=== PATIENT | male | born 1950 | race Caucasian/White ===

== ENCOUNTER 2019-08-02 05:03 | Inpatient (IN) | payer MEDICARE ==
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
[2019-08-02] MEDS ORDERED: TENORMIN100 MG PO (05:06)
[2019-08-02] MEDS ORDERED: NAPROSYN500 MG PO (05:06)
[2019-08-02] MEDS ORDERED: PREDNISONE5 MG PO (05:06)
[2019-08-02] MEDS ORDERED: VITAMIN D31000 UNI2 PO (05:07)
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
[2019-08-02 07:32] VITALS: BP 139/88; BMI 24.3
--- NOTE | 2019-08-02 08:52 | NUR ---
On the patient's skin assessment it is noted that he has some blister type areas on his back that are scabbing over. The patient says he has had shingles before but he does not think he has them now, he says other Dr.'s are unsure what it is . He also has onychomycosis to all of his digits on bilateral feet. He has had his right knee replaced. He is limping and walking slowly, but he refuses a cane or a walker or a w/c he says he tries to stay independent.
[2019-08-02 09:03] VITALS: BP 139/88
[2019-08-02 10:03] LABS: CHOL - HDL RATIO 3.4 ratio (2.3-4.9); THYROID STIMULATING HORMONE 3.46 uIU/mL (0.36-3.74)
--- NOTE | 2019-08-02 10:49 | NUR ---
The patient is discussing being [age] with other patients and he says he remembers being [age]. 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
[2019-08-02 11:30] VITALS: Wt 73.4 kg
[2019-08-02 20:10] VITALS: BP 110/66
--- NOTE | 2019-08-02 21:55 | NUR ---
B.) PT IS ALERT AND ORIENTED X4. HE IS PLEASANT WITH STAFF. HE IS ABLE TO MAKE HIS NEEDS KNOWN. HE IS ABLE TO AMBULATE WITHOUT ASSISTANCE. I.) PROVIDE PM MEDICATION R.) COMPLIANT WITH ALL MEDICATION. P.) CONTINUE PLAN OF CARE
[2019-08-03 08:00] VITALS: BP 117/74
--- NOTE | 2019-08-03 11:21 | NUR ---
RECEIVED PT. IN DINING ROOM FOR B'FAST, ALERT, ORIENTED, CALM, COOPERATIVE, DENIES SUICIDAL THOUGHTS. MEDS ADMIN PER ORDERS WITH COMPLETE MED COMPLIANCE NOTED. CONT POC DIRECTED.
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
--- NOTE | 2019-08-04 01:31 | NUR ---
B.) PT IS ALERT AND ORIENTED X4. HE IS PLEASANT WITH STAFF BUT IS WITHDRAWN FROM PEERS. HE IS ABLE TO AMBULATE UNASSISTED. I.) PROVIDED PM MEDICATIONS. R.) COMPLIANT WITH ALL MEDICATIONS. P.) WILL CONTINUE TO MONITOR.
[2019-08-04 07:35] LABS: ALBUMIN 2.4 g/dL (3.4-5.0); ANION GAP 11.2 mmol/L (8-16); BILIRUBIN - TOTAL 0.43 mg/dL (0.2-1.3); CALCIUM 8.3 mg/dL (8.5-10.1); CARBON DIOXIDE 27.6 mmol/L (21.0-32.0); CREATININE - SERUM 1.2 mg/dL (0.6-1.3); POTASSIUM - SERUM 4.8 mmol/L (3.5-5.1); PROTEIN - SERUM 7.1 g/dL (6.4-8.2)
[2019-08-04 07:48] LABS: BASOPHILS 0.8 % (0-2); HEMATOCRIT 39.1 % (42.0-54.0); HEMOGLOBIN 12.5 g/dL (13.5-17.5); IMMATURE GRANULOCYTES 0.2 % (0-5); LYMPHOCYTES 26.9 % (15-50); MCH 27.4 pg (26.0-34.0); MCV 85.6 fL (80.0-100.0); MEAN PLATELET VOLUME 10.4 fL (7.4-10.4); NEUTROPHILS 55.1 % (40-80); PLATELET COUNT 283 10x3/uL (130-400); RBC 4.57 10x6/uL (4.20-6.10); RDW 15.5 % (11.5-14.5); WBC 6.3 10x3/uL (4.8-10.8)
[2019-08-04 10:42] VITALS: BP 100/53
--- NOTE | 2019-08-04 17:44 | NUR ---
PATIENT DENIES SUICIDAL THOUGHTS THIS SHIFT, CALM, COOPERATIVE, ALERT, ORIENTED. COMPLIANT WITH MEDS. CONT POC DIRECTED.
--- NOTE | 2019-08-04 22:18 | NUR ---
RECEIVED IN PATIENT ROOM. GETTING READY FOR BED. CALM AND COOPERATIVE WITH CARE AND ASSESSMENT. DENIES THOUGHTS OF SELF HARM. REDIRECT AND REORIENT NEEDED. RESTING IN BED WITH EYES CLOSED AT THIS TIME. CONTINUE PLAN OF CARE.
[2019-08-05 00:03] VITALS: BP 110/54
[2019-08-05 08:10] LABS: RAPID PLASMA REAGIN Non Reactive (Non Reactive)
[2019-08-05 08:24] VITALS: BP 102/63
[2019-08-05 12:55] LABS: APPEARANCE CLEAR (CLEAR); BILIRUBIN NEGATIVE (NEGATIVE); COLOR YELLOW (YELLOW); GLUCOSE NEGATIVE (NEGATIVE); KETONE NEGATIVE (NEGATIVE); NITRITE NEGATIVE (NEGATIVE); PROTEIN NEGATIVE (NEGATIVE)
--- NOTE | 2019-08-05 13:28 | NUR ---
PT DENIES SI AT THIS TIME. PT IS CALM AND COOPERATIVE WITH ASSESSMENT. MED COMPLIANT. WILL CPOC.
--- NOTE | 2019-08-05 15:36 | PN ---
PATIENT:KEV PAYNE MEDICAL RECORD: [id number] LOCATION:[facility] [address] ADMISSION DATE: 08/02/19 PROGRESS NOTE DATE OF SERVICE: 08/04/2019 SUBJECTIVE: The patient's case was discussed with staff. He has no new complaint. OBJECTIVE: The patient has a depressed mood, but no thoughts of self-harm. He is tolerating his medicines well. ASSESSMENT: Major depression. PLAN: Current medicines have been reviewed. I am going to decrease his Ambien slightly because of some daytime sedation. He does have some very significant social needs. Hopefully, those can be addressed soon. TRANSINT:[id number] Voice Confirmation ID: [id number] DOCUMENT ID: [id number] IGNACIO TREVINO MD at 1536 CC: [id number] DICTATION DATE: 08/04/192049 DISPATCHER SERVICE: 08/04/192102 ADM IN [facility] [address] [place] [id number]
[2019-08-05 20:48] VITALS: BP 117/61
[2019-08-06 07:00] VITALS: BP 109/71
--- NOTE | 2019-08-06 10:00 | NUR ---
PATIENT IN GROUP AT THIS TIME. NO DISTRESS NOTED AT THIS TIME. RESP EVEN AND NONLABORED. PT IS ALERT AND ORIENTED TO PERSON, TIME AND PLACE. DENIES ANY SI AT THIS TIME. PT CAN MAKE NEEDS KNOWN. WILL CONT PLAN OF CARE.
--- NOTE | 2019-08-06 13:45 | PN ---
PATIENT:KEV PAYNE MEDICAL RECORD: [id number] LOCATION:[facility] [address] ADMISSION DATE: 08/02/19 PROGRESS NOTE DATE OF SERVICE: 08/05/2019 SUBJECTIVE: The patient's case was discussed with staff. He has no new complaint. OBJECTIVE: I think the lower dose of Ambien has helped this patient. He is much less impaired. He denies that he would seek to harm himself again. At this point, I think it is a matter of finding some sort of reasonable placement for him. I have spoken with our social work therapist regarding this and she is working on it as best she can. ASSESSMENT: Major depression. PLAN: Current medicines will be maintained. TRANSINT:[id number] Voice Confirmation ID: [id number] DOCUMENT ID: [id number] IGNACIO TREVINO MD at 1345 CC: [id number] DICTATION DATE: 08/05/191925 FASHION MERCHANDISER: 08/05/192114 ADM IN [facility] [address] [place] [address]
--- NOTE | 2019-08-06 14:43 | NUR ---
Nutrition Follow-up: Diet: Regular PO intake: ~88% average x last 9 meals Last BM: none recorded (MD note says 08/01/19) Wt: 157# (08/03/19); Admit wt: 155# (08/02/19) Significant meds: linzess, prednisone. labs and skin assessment reviewed. Continue current nutrition regimen. RD Following.
--- NOTE | 2019-08-06 20:11 | NUR ---
RECEIVED IN PATIENT ROOM. GETTING READY FOR BED. CALM AND COOPERATIVE WITH CARE AND ASSESSMENT. DENIES THOUGHTS OF SELF HARM. REDIRECT AND REORIENT NEEDED. SITTING ON SIDE OF BED AT THIS TIME. CONTINUE PLAN OF CARE.
[2019-08-06 22:59] VITALS: BP 121/71
[2019-08-07 08:00] VITALS: BP 124/69
--- NOTE | 2019-08-07 08:55 | PN ---
PATIENT:KEV PAYNE MEDICAL RECORD: [id number] LOCATION:[facility] [address] ADMISSION DATE: 08/02/19 PROGRESS NOTE DATE OF SERVICE: 08/06/2019 SUBJECTIVE: The patient's case was discussed with staff. He has no new complaint. OBJECTIVE: The patient is in good behavioral control with poor insight about his condition. He tolerates his medicines well. ASSESSMENT: Major depression. PLAN: Supportive and educational interventions were made. Long-term prognosis is guarded. The patient is not going to receive a social security check until September. This is problematic with regard to discharge planning, but I have discussed it with the social service manager who has some ideas. TRANSINT:[id number] Voice Confirmation ID: [id number] DOCUMENT ID: [id number] IGNACIO TREVINO MD at 0855 CC: [id number] DICTATION DATE: 08/06/19 1601 TILE PICKER: 08/06/192030 ADM IN [place] [id number] [place] [address]
--- NOTE | 2019-08-07 11:17 | NUR ---
PATIENT SITTING IN CHAIR WAS SOCIALIZING WITH NURSE. DENIES ANY SI. CAN MAKE NEEDS KNOWN. NO ACUTE DISTRESS NOTED. PATIENT IS ALERT AND ORIENTED 4X. PT IS COMPLIANT WITH MEDS, VITALS AND ASSESSMENTS. PT IS VERY FRIENDLY WITH STAFF AND PEERS.
--- NOTE | 2019-08-07 20:13 | NUR ---
RECEIVED IN DAYROOM. SITTING IN A CHAIR WITH PEERS AT HIS SIDE. CALM AND COOPERATIVE WITH CARE AND ASSESSMENT. DENIES SELF HARM. ENCOURAGE TO EXPRESS NEEDS. IN BEDROOM EYES OPEN AT THIS TIME. CONTINUE PLAN OF CARE
[2019-08-07 22:47] VITALS: BP 107/53
--- NOTE | 2019-08-08 10:42 | NUR ---
B) The patient is awake and alert. He is pleasant and calm, he denies suicidal ideation, but admits he is depressed and he cries a lot at night. He is walking a lot better and says his pain is better. I) Provide prscribed meds. R) The patient is compliant with meds. P) Continue POC.
[2019-08-08 15:21] VITALS: BP 130/74
--- NOTE | 2019-08-08 16:06 | PN ---
PATIENT:KEV PAYNE MEDICAL RECORD: [id number] LOCATION:[facility] [address] ADMISSION DATE: 08/02/19 PROGRESS NOTE DATE OF SERVICE: 08/07/2019 SUBJECTIVE: The patient's case was discussed with staff. He has no new complaint. OBJECTIVE: The patient is in good behavioral control. Poor insight about his condition. ASSESSMENT: Major depression. PLAN: The patient has no suicidal thoughts. He will be maintained on current medicines. TRANSINT:[id number] Voice Confirmation ID: [id number] DOCUMENT ID: [id number] IGNACIO TREVINO MD at 1606 CC: [id number] DICTATION DATE: 08/07/19 1025 FILL MANAGER: 08/07/19 1041 ADM IN [id number] [place] [address]
[2019-08-08 20:23] VITALS: BP 133/69
--- NOTE | 2019-08-09 02:54 | NUR ---
REC'D SITTING IN THE DAYROOM. ALERT AND ORIENTED X4. INTERACTING WITH PEERS AND STAFF. APPRORIATE TOWARD STAFF. ADMINISTER MEDS AND MONITOR COMPLIANCE. OBTAIN VERBAL NO HARM CONTRACT. MED COMPLIANT. CONTRACTS VERBALLY FOR NO SELF HARM. CONTINUE POC AND PROVIDE SAFE ENVIRONMENT.
--- NOTE | 2019-08-09 11:48 | PN ---
PATIENT:KEV PAYNE MEDICAL RECORD: [id number] LOCATION:[facility] [address] ADMISSION DATE: 08/02/19 PROGRESS NOTE DATE OF SERVICE: 08/08/2019 SUBJECTIVE: The patient's case was discussed with staff. He has no new complaint. OBJECTIVE: The patient has a mildly depressed mood, but no thoughts of self-harm. He is tolerating his medicines well. ASSESSMENT: No change in diagnoses. PLAN: The patient is sleeping adequately. I am going to reduce his Ambien to just 2.5 mg at bedtime. TRANSINT:[id number] Voice Confirmation ID: [id number] DOCUMENT ID: [id number] IGNACIO TREVINO MD at 1148 CC: [id number] DICTATION DATE: 08/08/19 1625 DIVEMASTER: 08/08/191939 ADM IN [facility] [address] [place] [address]
[2019-08-09 20:00] VITALS: BP 127/62
--- NOTE | 2019-08-09 21:14 | NUR ---
PATIENT IS PLEASANT, INTERACTS WITH OTHERS WELL, DENIES S/I. COMPLIANT WITH MEDS. NO ADVERSE REACTION TO MEDS. WILL FOLLOW POC
[2019-08-10 10:36] VITALS: BP 111/71
--- NOTE | 2019-08-10 13:21 | PN ---
PATIENT:KEV PAYNE MEDICAL RECORD: [id number] LOCATION:[facility] [address] ADMISSION DATE: 08/02/19 PROGRESS NOTE DATE OF SERVICE: 08/09/2019 SUBJECTIVE: The patient's case was discussed with staff. He has no new complaint. OBJECTIVE: The patient has a depressed mood, but no thoughts of self-harm. He is tolerating his medicines well. His Ambien was discontinued. I decided to do so after saying I would reduce the dose. He still slept 9 hours last night, so I do not think he needs Ambien. He was sleeping in the day room today when I arrived to see him. ASSESSMENT: Major depression. PLAN: Current medicines will be maintained. Long-term prognosis is guarded. TRANSINT:[id number] Voice Confirmation ID: [id number] DOCUMENT ID: [id number] IGNACIO TREVINO MD at 1321 CC: [id number] DICTATION DATE: 08/09/19 1151 SPLINE ROLLING MACHINE JOB SETTER: 08/09/19 1245 ADM IN [place] [id number] [place] [id number]
--- NOTE | 2019-08-10 14:00 | NUR ---
PT IS AWAKE AND ALERT X 4. CALM AND COOPERATIVE WITH ASSESSMENT. DENIES SI AT THIS TIME. PRESCRIBED MEDS PROVIDED ORDERED. MED COMPLIANT. NO BEHAVIORS NOTED. WILL CPOC.
--- NOTE | 2019-08-10 19:32 | NUR ---
RECEIVED IN HALLWAY OUTSIDE OF NURSES STATION. SITTING WITH PEERS AT HIS SIDE. CALM AND COOPERATIVE WITH CARE AND ASSESSMENT. DENIES SELF HARM. NO STATEMENTS OF SELF HARM MADE THIS PM. CONTINUES TO SIT QUIETLY IN HALLWAY. CONTINUE PLAN OF CARE
[2019-08-11 08:18] VITALS: BP 124/67
--- NOTE | 2019-08-11 12:29 | PN ---
PATIENT:KEV PAYNE MEDICAL RECORD: [id number] LOCATION:[facility] [address] ADMISSION DATE: 08/02/19 PROGRESS NOTE DATE OF SERVICE: 08/10/2019 SUBJECTIVE: The patient's case was discussed with staff. He has no new complaint. OBJECTIVE: The patient denies intent to harm himself or others. He has a euthymic mood. ASSESSMENT: Major depression. PLAN: The patient has shown dramatic improvement. I do not view him as suicidal. I will discharge him once an appropriate setting has been arranged. TRANSINT:[id number] Voice Confirmation ID: [id number] DOCUMENT ID: [id number] IGNACIO TREVINO MD at 1229 CC: [id number] DICTATION DATE: 08/10/19 1336 SPIN TABLE OPERATOR: 08/10/19 1905 ADM IN [facility] [address] [place] [address]
--- NOTE | 2019-08-11 12:58 | NUR ---
PT IS AWAKE AND ORIENTED X 4. CALM AND COOPERATIVE WITH ASSESSMENT. PRESCRIBED MEDS PROVIDED ORDERED. MED COMPLIANT. NO BEHAVIORS NOTED AT THIS TIME. WILL CPOC.
--- NOTE | 2019-08-11 19:23 | NUR ---
RECEIVED IN DINING ROOM AREA. CALM AND COOPERATIVE WITH CARE AND ASSESSMENT. DENIES SELF HARM. ENCOURAGE TO EXPRESS NEEDS. RESTING IN BED WITH EYES CLOSED. CONTINUE PLAN OF CARE
[2019-08-11 22:02] VITALS: BP 119/69
[2019-08-12 08:00] VITALS: BP 110/80
--- NOTE | 2019-08-12 11:20 | NUR ---
PT IS AWAKE, ALERT, AND ORIENTED X 4. PT DENIES SI AT THIS TIME. CALM AND COOPERATIVE WITH ASSESSMENT. PRESCRIBED MEDS PROVIDED ORDERED. MED COMPLIANT. WILL CPOC.
--- NOTE | 2019-08-12 12:41 | PN ---
PATIENT:KEV PAYNE MEDICAL RECORD: [id number] LOCATION:[facility] [address] ADMISSION DATE: 08/02/19 PROGRESS NOTE DATE OF SERVICE: 08/11/2019 SUBJECTIVE: The patient's case was discussed with staff. He has no new complaint. OBJECTIVE: The patient has a depressed mood, but no thoughts of self-harm and overall his mood is better. ASSESSMENT: Major depression. PLAN: Current medicines have been reviewed. I am going to increase the dose of the Effexor. TRANSINT:[id number] Voice Confirmation ID: [id number] DOCUMENT ID: [id number] IGNACIO TREVINO MD at 1241 CC: [id number] DICTATION DATE: 08/11/19 1312 HONE OPERATOR: 08/11/19 1646 ADM IN [address] [address]
--- NOTE | 2019-08-12 13:39 | NUR ---
Nutrition Follow-up: Diet: Regular PO intake: ~96% average x last 9 meals Last BM: 08/11/19 (per MD notes). Wt: 161# (08/10/19); Admit wt: 155# (08/02/19) Significant meds: prednisone. No new labs. Continue current nutrition regimen. RD Following.
--- NOTE | 2019-08-12 19:58 | NUR ---
RECEIVED IN DINING AREA. SITTING AT TABLE SOCIALIZING WITH PEERS. CALM AND COOPERATIVE WITH CARE AND ASSESSMENT. DENIES SELF HARM AT THIS TIME. CONTINUES TO SIT CALMLY IN DINING AREA. CONTINUE PLAN OF CARE
[2019-08-12 22:55] VITALS: BP 112/63
[2019-08-13 08:00] VITALS: BP 111/62
--- NOTE | 2019-08-13 15:58 | PN ---
PATIENT:KEV PAYNE MEDICAL RECORD: [id number] LOCATION:[facility] [address] ADMISSION DATE: 08/02/19 PROGRESS NOTE DATE OF SERVICE: 08/12/2019 SUBJECTIVE: The patient's case was discussed with staff. He has no new complaint. OBJECTIVE: The patient is in good behavioral control with poor insight about her situation. ASSESSMENT: Major depression. PLAN: The patient is looking for options other than going [facility] the homeless [facility]. At this point, he has not been able to come up with anything. TRANSINT:[id number] Voice Confirmation ID: [id number] DOCUMENT ID: [id number] IGNACIO TREVINO MD at 1558 CC: [id number] DICTATION DATE: 08/12/19 1256 MEDICAL ESTHETICIAN: 08/12/19 1430 ADM IN [id number] [place] [address]
[2019-08-13] MEDS ORDERED: PROTONIX40 MG PO (16:36)
[2019-08-13] MEDS ORDERED: EFFEXOR37.5 MG PO (16:36)
[2019-08-13] MEDS ORDERED: LINZESS145 MCG PO (16:36)
--- NOTE | 2019-08-13 17:46 | NUR ---
PATIENT QUITE COOPERATIVE AND PLEASANT THIS SHIFT. DENIES SUICIDAL IDEATIONS. MED COMPLIANT. CONT POC DIRECTED.
[2019-08-13 20:30] VITALS: BP 112/54
--- NOTE | 2019-08-14 00:04 | NUR ---
PATIENT IS ALERT AND ORIENTED, COMPLIANT WITH MEDS, ABLE TO MAKE ALL NEEDS KNOWN, GOOD AFFECT, SMILES AND HOLD EYE CONTACT. WILL FOLLOW POC
[2019-08-14 08:51] VITALS: BP 109/63
--- NOTE | 2019-08-14 13:47 | NUR ---
Nutrition Follow-up: Diet: Regular PO intake: ~86% average x last 9 meals Last BM: 08/12/19 (per MD note). Wt: 162# (08/14/19); Admit wt: 155# (08/02/19) Significant meds: linzess, prednisone. No new labs. Continue current nutrition regimen. RD following.
--- NOTE | 2019-08-14 14:34 | PN ---
PATIENT:KEV PAYNE MEDICAL RECORD: [id number] LOCATION:[facility] [address] ADMISSION DATE: 08/02/19 PROGRESS NOTE DATE OF SERVICE: 08/13/2019 SUBJECTIVE: The patient's case was discussed with staff. He has no new complaint. OBJECTIVE: The patient is in good behavioral control with limited insight about his condition. He has no thoughts of harming himself or others. ASSESSMENT: Major depression. PLAN: The patient will be transitioned out of the hospital tomorrow. Long-term prognosis is guarded. TRANSINT:[id number] Voice Confirmation ID: [id number] DOCUMENT ID: [id number] IGNACIO TREVINO MD at 1434 CC: [id number] DICTATION DATE: 08/13/19 1635 BOAT JOINER: 08/14/19 0000 ADM IN [facility] [address] [place] [address]
--- NOTE | 2019-08-14 15:17 | NUR ---
B) The patient is awake and alert he is pleasant and calm, he is being discharged today. He does not have a PCP, but reminded him that he will need to see an MD within a week of being dc'd. He verbalizes understanding. I) Provide prescribed meds. R) The patient is compliant with meds. P) Continue POC.
--- NOTE | 2019-08-14 16:00 | NUR ---
The patient's friend came to pick the patient up. Again went over the patient's meds and explained that he will need to find a PCP. Returned the patient's wallet, and cell phone.
== END 2019-08-14 16:00 | disposition home or self-care (01) | DRG 881 ==
LOC: D.PSYCH 05:03
PROVIDERS: ADMIT Psychiatry & Neurology Psychiatry; ATTEND Psychiatry & Neurology Psychiatry
DX: F32.9 Major depressive disorder, single episode, unspecified (principal); M06.9 Rheumatoid arthritis, unspecified; I10 Essential (primary) hypertension; E55.9 Vitamin D deficiency, unspecified; G47.00 Insomnia, unspecified; K59.00 Constipation, unspecified